=== PATIENT | female | born 1965 | race Caucasian/White ===

== ENCOUNTER 2022-01-01 11:38 | Emergency (ER) | payer BC ==
[~2022-01-01] VITALS: Ht 175.3 cm; Wt 86.3 kg
[2022-01-01] MEDS ORDERED: diphenhdrAMINE HCL 50 MG/1 ML VL IM ONE (15:30)
[2022-01-01] MEDS ORDERED: cefTRIAXone SOD 1,000 MG VL IM ONE (15:30)
[2022-01-01] MEDS ORDERED: AZIT500T66 PO (16:25)
[2022-01-01] MEDS ORDERED: ALPR0.5T PO (16:25)
[2022-01-01 16:31] VITALS: BP 147/73
== END 2022-01-01 16:33 | disposition home or self-care (01) ==
LOC: ER 11:38
DX: J03.90 Acute tonsillitis, unspecified (principal); F41.1 Generalized anxiety disorder; M19.90 Unspecified osteoarthritis, unspecified site; Z20.822 Contact with and (suspected) exposure to COVID-19
CPT/HCPCS: 36415; 71045; 87426; 96372; 99284; J0696; J1200